=== PATIENT | male | born 1955 | race Caucasian/White ===

== ENCOUNTER 2019-09-14 15:01 | Inpatient (IN) | payer OTHER, BC ==
[~2019-09-14] VITALS: Ht 177.8 cm; Wt 105.0 kg
[~2019-09-14 15:01] MED LIST: CYCL10 PO; TAMS.4ER
[2019-09-17] MEDS ORDERED: TAMS.4ER PO (06:29)
--- NOTE | 2019-09-17 07:21 | NUR ---
History, Chart, Medications and Allergies reviewed before start of procedure.Patient confirms NPO status and agrees with scheduled surgery. Confirmed with Dr. Jesse perry despite allergy to PCN. Nozin nasal staff radiation therapist x3 ampules to nares bilat per Dr. mcelroy.
--- NOTE | 2019-09-17 07:41 | NUR ---
GOLD RING TO RING HAND TAPED IN PLACE AND WAIVER SIGNED BY PATIENT. PATIENT DENIES WEARING ANY OTHER JEWELRY. KNEE HIGH MORGAN HOSE AND CALF PAS INTACT BLE.
--- NOTE | 2019-09-17 07:43 | NUR ---
ERYTHEMA NOTED TO SKIN AFTER CLIP PREP COMPLETED. IT APPEARED RAISED AND LINEAR IN PATTERN. WHEN DR DUFFY MARKED SURGERY SITE, SKIN LOOKED CLEAR WITH NO ERYTHEMA AND SKIN INTACT. DR DUFFY NOTIFIED OF PREVIOUS IRRITATION TO SURGERY SITE.
--- NOTE | 2019-09-17 12:15 | NUR ---
pt transferreed to room, a/o x 4, pleasant/cooperative, post op vs commenced and stable, pt denies pained, states to slight nausea, will medicate per mar
--- NOTE | 2019-09-17 15:20 | NUR ---
PT WORKING WITH PHYSICAL THERAPY
--- NOTE | 2019-09-17 15:39 | NUR ---
PERMISSION FOR CARE I, ISACC MACHADO A [facility] ATTEND[facility], RECIEVED PERMISSION FROM THIS PATIENT ON 09/17/2019 TO PROVIDE CARE FOR HIM ON 09/18/2019.
--- NOTE | 2019-09-17 17:43 | NUR ---
shift summary: following R EMMA, post op vss and complete, remained a/o x 4, pleasant/cooperative. pt reports no n/v, rates pain at 1-2/10, up to 4/10 following therapy and ambulation, but reports reduction to 2/10 with ice and rest, denies need for additional analgesia per mar. pt has tolerated PO intake, voided, ambulated in hallway and worked with physical therapy. dressing has remained c/d/i on operative hip, full sensation in BLE, good capillar refill, warm/dry to touch.
--- NOTE | 2019-09-17 18:03 | NUR ---
DR DUFFY ROUNDING ON PT
--- NOTE | 2019-09-18 01:36 | NUR ---
ASSUMED CARE OF PT. PT APPEARS TO BE SLEEPING IN BED, EYE MASK ON. RESP E/U, NO DISTRESS NOTED. WILL CONT TO MONITOR AND TX PER ORDERS.
[2019-09-18 04:56] LABS: BASOPHILS ABSOLUTE AUTO 0.02 K/mm3 (0.00-0.23); BASOPHILS PERCENT AUTO 0 % (0-2); EOSINOPHILS PERCENT AUTO 0 % (0-6); Hematocrit 34.7 % (37.0-53.0); Hemoglobin 11.6 g/dL (13.5-17.5); IMMATURE GRAN ABSOLUTE AUTO 0.08 K/mm3 (0.00-0.10); IMMATURE GRAN PERCENT AUTO 1 % (0-1); LYMPHOCYTES ABSOLUTE AUTO 1.49 K/mm3 (0.84-5.20); LYMPHOCYTES PERCENT AUTO 9 % (21-46); MONOCYTES ABSOLUTE AUTO 2.12 K/mm3 (0.16-1.47); MONOCYTES PERCENT AUTO 12 % (4-13); Mean Corpuscular HGB 29.6 pg (26.0-34.0); Mean Corpuscular HGB Conc 33.4 g/dL (31.5-36.5); Mean Corpuscular Volume 89 fL (80-100); Mean Platelet Volume 10.5 fL (9.1-12.4); NEUTROPHILS PERCENT AUTO 78 % (41-73); Platelet Count 203 K/mm3 (150-400); RDW Coefficient Variation 13.1 % (11.7-14.2); RDW Standard Deviation 42.3 fL (35.1-46.3); Red Blood Cell Count 3.92 M/mm3 (4.30-5.90); White Blood Cell Count 17.21 K/mm3 (4.00-11.30)
[2019-09-18 05:25] LABS: Anion Gap 7 mmol/L (6-16); Blood Urea Nitrogen 20 mg/dL (8-24); Bun/Creatinine Ratio 17.9 (12.0-20.0); CO2, Blood 24 mmol/L (21-32); Calcium, Blood 8.3 mg/dL (8.5-10.1); Chloride, Blood 109 mmol/L (98-108); Creatinine, Blood 1.12 mg/dL (0.60-1.20); Glomerular Filtration Rate >60 (60-); Glucose, Blood 123 mg/dL (70-99); Magnesium, Blood 2.2 mg/dL (1.6-2.4); Potassium, Blood 4.1 mmol/L (3.5-5.5); Sodium, Blood 140 mmol/L (136-145)
--- NOTE | 2019-09-18 06:22 | NUR ---
POD 1 S/P R EMMA. PT VSS T/O NIGHT. DRESSING CDI, PT DENIED N/T. PAIN MGD W/TRAMADOL AND TORADOL W/REP RELIEF. PT UP OOB W/FWW+SBA, JOCELIN WELL. PT USING CALL LIGHT FOR ASSISTANCE, WILL CONT TO MONITOR UNTIL REP GIVEN TO ONCOMING RN.
--- NOTE | 2019-09-18 09:54 | NUR ---
09/18/19 0954 Samantha Bui VERIFICATIONS: EDIT CHART.
[2019-09-18] MEDS ORDERED: ACET500 PO (10:28)
[2019-09-18] MEDS ORDERED: TRAM50 PO (10:29)
[2019-09-18] MEDS ORDERED: ASPI81CH PO (10:29)
--- NOTE | 2019-09-18 12:10 | NUR ---
DISCHARGE PT CLEARED THERAPY, PAIN WELL MANAGED, EATING, DRINKING, AND VOIDING WELL. ANGEL CLEAN W/ NO XAVIER @ D/C, SCRIPTS CALLED TO PHARMACY OF CHOICE, ADAM SENT. ESCORTED OUT VIA W/C.
== END 2019-09-18 12:10 | disposition home or self-care (01) | DRG 470 ==
LOC: SURS 09-17 06:07 → PRE IP 09-17 07:30 → SURS 09-17 12:20
PROVIDERS: ADMIT Orthopaedic Surgery
PROC: 0SR904A Replacement of Right Hip Joint with Ceramic on Polyethylene Synthetic Substitute, Uncemented, Open Approach (ICD-10-PCS; principal; 2019-09-17 07:30)
DX: M16.11 Unilateral primary osteoarthritis, right hip (principal)
CPT/HCPCS: 36415; 72170; 80048; 83735; 85025; 88300; 97110; 97116; 97162; C1776; J0171; J0690; J0735; J1100; J1885; J2250; J2405; J2704; J2795; J3010; J7120

== ENCOUNTER 2020-02-04 09:22 | Day surgery (SDC) | payer OTHER, BC ==
[~2020-02-04] VITALS: Ht 177.8 cm; Wt 102.8 kg
[~2020-02-04 09:22] MED LIST changes: +ACET500 PO; +ASPI81CH PO; +TAMS.4ER PO; +TRAM50 PO
--- NOTE | 2020-02-04 10:30 | NUR ---
History, Chart, Medications and Allergies reviewed before start of procedure. Lungs clear T/O to Auscultation. Patient confirms NPO status and agrees with scheduled surgery. PT STAYING OVERNIGHT.
--- NOTE | 2020-02-04 15:51 | NUR ---
PT ARRIVED TO UNIT FROM PACU. A&OX4. DENIES PAIN. GROSS MOVEMENT OF LLE, NO MOVEMENT OF RLE. PT HAS SENSATION AT [place]. DENIES SOB OR N/V. VSS. AQUACEL TO LLE CDI. POLAR PACK IN PLACE. CALL LIGHT IN REACH.
--- NOTE | 2020-02-04 19:51 | NUR ---
SUMMARY PT ARRIVED TO UNIT THIS AFTERNOON FROM PACU. DRESSING TO L KNEE CDI. VSS. PT DENIES PAIN. BS SHOWED >900 IN BLADDER. PT DID NOT WANT CATH, AMBULATED TO RESTROOM AND VOIDED. DECLINED FOLLOW UP BS, REPORTING TO RFANCESCA RAIN RN THAT HE WOULD ATTEMPT TO VOID AGAIN. EDUCATED ON IMPORTANCE OF EMPTYING BLADDER. REPORTED TO ONCKOFFI BYRNES RN.
--- NOTE | 2020-02-04 22:52 | NUR ---
0 PT REFUSING BLADDER SCAN AND DECLINING STRAIGHT CATH, HAVE BEEN EDUCATING PT ON NEED TO MAKE SURE BLADDER BECOMES EMPTY AND PURPOSE OF BLADDER SCANNING, VERY ADAMANT ON ATTEMPTING TO VOID. HE IS ALLOWING BLADDER SCANS NOW BUT STILL DECLINING STRAIGHT CATH. WILL CONTINUE TO EDUCATE AND MONITOR FOR RETENTION.
[2020-02-05 04:36] LABS: BASOPHILS ABSOLUTE AUTO 0.02 K/mm3 (0.00-0.23); BASOPHILS PERCENT AUTO 0 % (0-2); EOSINOPHILS PERCENT AUTO 0 % (0-6); Hematocrit 42.6 % (37.0-53.0); Hemoglobin 13.9 g/dL (13.5-17.5); IMMATURE GRAN ABSOLUTE AUTO 0.06 K/mm3 (0.00-0.10); IMMATURE GRAN PERCENT AUTO 0 % (0-1); LYMPHOCYTES ABSOLUTE AUTO 1.22 K/mm3 (0.84-5.20); LYMPHOCYTES PERCENT AUTO 8 % (21-46); MONOCYTES ABSOLUTE AUTO 0.84 K/mm3 (0.16-1.47); MONOCYTES PERCENT AUTO 6 % (4-13); Mean Corpuscular HGB 28.1 pg (26.0-34.0); Mean Corpuscular HGB Conc 32.6 g/dL (31.5-36.5); Mean Corpuscular Volume 86 fL (80-100); Mean Platelet Volume 10.4 fL (9.1-12.4); NEUTROPHILS ABSOLUTE AUTO 12.88 K/mm3 (1.96-9.15); NEUTROPHILS PERCENT AUTO 86 % (41-73); Platelet Count 243 K/mm3 (150-400); RDW Coefficient Variation 13.6 % (11.7-14.2); RDW Standard Deviation 42.9 fL (35.1-46.3); Red Blood Cell Count 4.94 M/mm3 (4.30-5.90); White Blood Cell Count 15.02 K/mm3 (4.00-11.30)
[2020-02-05 04:52] LABS: Anion Gap 5 mmol/L (6-16); Blood Urea Nitrogen 19 mg/dL (8-24); Bun/Creatinine Ratio 19.3 (12.0-20.0); CO2, Blood 25 mmol/L (21-32); Calcium, Blood 8.7 mg/dL (8.5-10.1); Chloride, Blood 108 mmol/L (98-108); Creatinine, Blood 0.98 mg/dL (0.60-1.20); Glomerular Filtration Rate >60 (60-); Glucose, Blood 128 mg/dL (70-99); Magnesium, Blood 2.3 mg/dL (1.6-2.4); Potassium, Blood 4.5 mmol/L (3.5-5.5); Sodium, Blood 138 mmol/L (136-145)
--- NOTE | 2020-02-05 05:47 | NUR ---
SHIFT SUMMARY POD 1 LTKA [id number], VSS. AQUACEL DRESSING CDI, PT REPORTS MINIMAL PAIN DURING SHIFT. STATES MOST PAIN IS WHEN TRYING TO VOID AND A HEADACHE. PT AMBULATED TO RESTROOM MULTIPLE TIMES, DOES WELL FOLLOWING PRECAUTIONS. FWW AND GB FOR ASSISTANCE. PT HAS BEEN RETAINING URINE BUT REFUSING STRAIGHT CATH, EDUCATED PT ON STRAIGHT CATHING AND BLADDER PROTOCOL. CONTINUES TO DECLINE. PT HAS BEEN TOLERATING PO WELL. WILL CONTINUE TO MONITOR FOR RETENTION.
[2020-02-05] MEDS ORDERED: ACET500 PO (08:38)
[2020-02-05] MEDS ORDERED: ASPI81CH PO (08:39)
[2020-02-05] MEDS ORDERED: OXYC5 PO (08:40)
--- NOTE | 2020-02-05 12:28 | NUR ---
Patient is sitting on a chair and alert. Life partner, Purvi, is bedside. Patient tells me about his latter day background, his hobbies his prior family unit complications and his surgery. I listen empathically, reinforce helpful attitudes and practices and provide prayer. Patient and Purvi respond well and show signs of an elvated mood.
--- NOTE | 2020-02-05 13:14 | NUR ---
DISCHARGED CLEARED THERAPY W/ASSEMBLY LEAD PERSON PRESENT. DC'D IV, CATHETER INTACT. REVIEWED DC INSTRUCTIONS; PT VERBALIZED UNDERSTANDING. PROVIDED DRESSING CHANGES. PT LEFT UNIT IN WC W/POSSESSIONS, DC PAPERWORK, PRESCRIPTION, DRESSING CHANGES, AND POLAR PACK IN HAND.
== END 2020-02-05 13:13 | disposition home or self-care (01) ==
LOC: ORSCMMR 09:22 → ORD 11:15 → SURS 15:12 → ORSCMMR 02-05 13:13
PROVIDERS: Orthopaedic Surgery
PROC: 0SRD0J9 Replacement of Left Knee Joint with Synthetic Substitute, Cemented, Open Approach (ICD-10-PCS; principal; 2020-02-04 11:15)
DX: M17.12 Unilateral primary osteoarthritis, left knee (principal); E66.9 Obesity, unspecified
CPT/HCPCS: 36415; 73560-LT; 80048; 83735; 85025; 88300; 97110; 97116; 97161; A9270-GY; C1713; C1776; J0171; J0690; J0735; J1885; J2250; J2704; J2795; J3010; J7120

== ENCOUNTER → 2020-08-04 | Outpatient (CLI) | payer MEDICARE, BC ==
[~2020-08-04] MED LIST changes: +OXYC5 PO
[2020-08-04 13:43] LABS: BASOPHILS ABSOLUTE AUTO 0.05 K/mm3 (0.00-0.23); BASOPHILS PERCENT AUTO 1 % (0-2); EOSINOPHILS ABSOLUTE AUTO 0.18 K/mm3 (0.00-0.68); EOSINOPHILS PERCENT AUTO 2 % (0-6); Hematocrit 44.2 % (37.0-53.0); Hemoglobin 14.9 g/dL (13.5-17.5); IMMATURE GRAN ABSOLUTE AUTO 0.02 K/mm3 (0.00-0.10); IMMATURE GRAN PERCENT AUTO 0 % (0-1); LYMPHOCYTES ABSOLUTE AUTO 2.32 K/mm3 (0.84-5.20); LYMPHOCYTES PERCENT AUTO 29 % (21-46); MONOCYTES PERCENT AUTO 14 % (4-13); Mean Corpuscular HGB 29.4 pg (26.0-34.0); Mean Corpuscular HGB Conc 33.7 g/dL (31.5-36.5); Mean Corpuscular Volume 87 fL (80-100); Mean Platelet Volume 10.1 fL (9.1-12.4); NEUTROPHILS ABSOLUTE AUTO 4.48 K/mm3 (1.96-9.15); NEUTROPHILS PERCENT AUTO 55 % (41-73); Platelet Count 213 K/mm3 (150-400); RDW Coefficient Variation 13.8 % (11.7-14.2); RDW Standard Deviation 44.4 fL (35.1-46.3); Red Blood Cell Count 5.07 M/mm3 (4.30-5.90); White Blood Cell Count 8.15 K/mm3 (4.00-11.30)
== END | disposition home or self-care (01) ==
LOC: LAB SHORT 13:40 → PLD 13:40
PROVIDERS: Physician Assistant
DX: R05 Cough (principal)
CPT/HCPCS: 85025

== ENCOUNTER 2021-10-02 08:50 | Day surgery (SDC) | payer MEDICARE, BC ==
[~2021-10-02] VITALS: Ht 180.3 cm; Wt 107.4 kg
--- NOTE | 2021-10-02 09:33 | NUR ---
Ambulatory in [facility] warming gown applied. Surgical site prepped with 2% Chlorhexidine cloth wipe. History, Chart, Medications and Allergies reviewed before start of procedure.Lungs clear T/O to Auscultation. Patient confirms NPO status and agrees with scheduled surgery. Pre-Op teaching done. Pt verbalizes understanding. Patient reports completing Chlorhexadine shower X2 prior to admission to hospital.
--- NOTE | 2021-10-02 12:27 | NUR ---
Dressing to procedure site clean, dry, intact with no visible drainage, swelling, erythema or bruising noted.
--- NOTE | 2021-10-02 13:21 | NUR ---
Discharge instructions reviewed with patient. Patient verbalizes understanding. Copy given to patient to take home. Discharged via wheelchair to private car for ride home.
== END 2021-10-02 13:20 | disposition home or self-care (01) ==
LOC: ORSCMMR 08:50 → ORD 13:45 → ORSCMMR 13:45
PROVIDERS: Surgery
PROC: 8E0W4CZ Robotic Assisted Procedure of Trunk Region, Percutaneous Endoscopic Approach (ICD-10-PCS; principal; 2021-10-02 10:30)
PROC: 0YU54JZ Supplement Right Inguinal Region with Synthetic Substitute, Percutaneous Endoscopic Approach (ICD-10-PCS; principal; 2021-10-02 10:30)
DX: K40.91 Unilateral inguinal hernia, without obstruction or gangrene, recurrent (principal); I10 Essential (primary) hypertension; Z79.899 Other long term (current) drug therapy
CPT/HCPCS: 49651; S2900; A9270; C1781; J0690; J7120

== ENCOUNTER 2023-09-07 07:18 | Day surgery (SDC) | payer MEDICARE, BC ==
[~2023-09-07] VITALS: Ht 177.8 cm; Wt 106.8 kg
[2023-09-07] VITALS (10 sets, daily range): BP systolic 140–177; BP diastolic 78–94
[~2023-09-07 07:18] MED LIST changes: +TADA10TA PO
[2023-09-07] MEDS ORDERED: SILD25T (08:17)
--- NOTE | 2023-09-07 08:19 | NUR ---
Ambulatory in Day Surgery History, Chart, Medications and Allergies reviewed before start of procedure.Pre-Op teaching done. Pt verbalizes understanding. Patient confirms NPO status and agrees with scheduled surgery. Patient States Post-Procedure ride home has been arranged.
--- NOTE | 2023-09-07 12:56 | NUR ---
Patient up to Ambulate independently. Gait steady. Discharge instructions reviewed with patient. Patient verbalizes understanding. Copy given to patient to take home, WELL FRIEND. Patient States Post-Procedure ride home has been arranged. Discharged via wheelchair to private car for ride home.
--- NOTE | 2023-09-08 14:55 | NUR ---
09/08/23 1455 Samantha Bui VERIFICATIONS: EDIT CHART.
== END 2023-09-07 12:56 | disposition home or self-care (01) ==
LOC: ORSCMMR 07:18 → ORD 08:30 → ORSCMMR 08:30
PROVIDERS: Surgery
PROC: 0YU54JZ Supplement Right Inguinal Region with Synthetic Substitute, Percutaneous Endoscopic Approach (ICD-10-PCS; principal; 2023-09-07 08:30)
DX: K40.91 Unilateral inguinal hernia, without obstruction or gangrene, recurrent (principal); D17.6 Benign lipomatous neoplasm of spermatic cord; I10 Essential (primary) hypertension; E78.5 Hyperlipidemia, unspecified; G47.33 Obstructive sleep apnea (adult) (pediatric); K21.9 Gastro-esophageal reflux disease without esophagitis; N40.0 Benign prostatic hyperplasia without lower urinary tract symptoms; Z79.899 Other long term (current) drug therapy; E66.9 Obesity, unspecified; Z68.34 Body mass index [BMI] 34.0-34.9, adult
CPT/HCPCS: 88304; A9270; C1781; J0690; J1100; J1885; J2405; J2704; J3010; J7120